=== PATIENT | male | born 1965 | race African-American/Black ===

== ENCOUNTER 2017-08-24 14:11 | Observation (INO) | payer BC, OTHER ==
--- NOTE | 2017-08-24 14:43 | PCM.HP ---
H&P History of Present Illness - General Date of Service: 08/24/17 Admit Problem/Dx: Admission Diagnosis/Problem Admission Diagnosis/Problem Appendicitis Source of Information: Patient History Limitations: Reports: No Limitations - History of Present Illness Initial Comments - Free Text/Narative: Patient is a 52 yo M who presents with abdominal pain for the past 24 hours. He developed generalized abdominal pain yesterday afternoon. As time went on it became constant, severe, and was located in the RLQ. It is made worse with movement and coughing. It is associated with nausea, but he hasnt vomited. He has a past medical history significant for smoking, COPD, and HTN. He presented to an OSH this am. His WBC was 9.8. His Hgb was 18.5. His BUN was WNL and Cr was 1. A CT of the abdomen pelvis showed a dilated appendix with an associated appendicolith. There was some micro pockets of free air to suggest perforation. He was transfered here with a diagnosis of appendicitis. His last meal was this morning around 7am and last drink was at 9am. - Related Data Allergies/Adverse Reactions: Allergies Allergy/AdvReac Type Severity Reaction Status Date / Time No Known Allergies Allergy Verified 08/24/17 14:35 Past Medical History Cardiovascular History: Reports: Hypertension Respiratory History: Reports: COPD, Other (See Below) Other Respiratory History: Cough Gastrointestinal History: Reports: None, Other (See Below) (Never had a colonoscopy) - Past Surgical History HEENT Surgical History: Reports: Eye Surgery Neurological Surgical History: Reports: Lumbar Spine, Spinal Fusion Social & Family History - Tobacco Use Smoking Status *Q: Current Every Day Smoker Years of Tobacco use: 35 Packs/Tins Daily: 1 Used Tobacco, but Quit: No Second Hand Smoke Exposure: No - Caffeine Use Caffeine Use: Reports: None - Alcohol Use Date of Last Drink: 08/23/17 Time of Last Drink: 09:30 - Recreational Drug Use Recreational Drug Use: No H&P Review of Systems - Review of Systems: Review Of Systems: See Below General: Reports: Decreased Appetite HEENT: Reports: No Symptoms Pulmonary: Reports: Wheezing, Cough Cardiovascular: Reports: No Symptoms Gastrointestinal: Reports: Abdominal Pain, Decreased Appetite, Nausea. Denies: Vomiting Genitourinary: Reports: No Symptoms Musculoskeletal: Reports: No Symptoms Skin: Reports: No Symptoms Exam - Exam Exam: See Below - Vital Signs Weight: 119.431 kg - Exam General: Alert, Oriented HEENT: Conjunctiva Clear, EOMI, Hearing Intact, Mucosa Moist & Hiram, Posterior Pharynx Clear, Pupils Equal, Pupils Reactive Lungs: Normal Respiratory Effort, Wheezing (on left side with experiation ) Cardiovascular: Regular Rate, Regular Rhythm GI/Abdominal Exam: Soft, Rebound (RLQ), Tender (RLQ). No: Guarding, Rigid Extremities: Normal Inspection *Q Meaningful Use (ADM) - VTE *Q VTE Criteria *Q: - Stroke *Q Stroke Criteria *Q: - AMI *Q AMI Criteria *Q: - Problem List (1) Appendicitis SNOMED Code(s): 37159062 ICD Code: K37 - UNSPECIFIED APPENDICITIS Status: Acute Current Visit: Yes Problem List Initiated/Reviewed/Updated: Yes Orders Last 24hrs: Active Orders 24 hr Category Date Time Status Patient Status [ADT] Routine ADT 08/24/17 14:35 Ordered Antiembolic Devices [RC] PER UNIT ROUTINE Care 08/24/17 14:37 Ordered RT Incentive Spirometry [RC] ASDIRECTED Care 08/24/17 14:35 Ordered Verify Patient Consent Obtain [RC] ASDIRECTED Care 08/24/17 14:35 Ordered Nothing Per Oral Diet [DIET] Diet 08/24/17 Breakfast Ordered BASIC METABOLIC PANEL,BMP [CHEM] AM Lab 08/25/17 05:11 Ordered CBC WITH AUTO DIFF [HEME] AM Lab 08/25/17 05:11 Ordered HYDROmorphone [Dilaudid] Med 08/24/17 14:37 Ordered 0.5 mg IVPUSH Q1H PRN Lactated Ringers @ 125 MLS/HR(1000ml) Med 08/24/17 14:45 Ordered Lactated Ringers [Ringers, Lactated] 1,000 ml IV ASDIRECTED Sequential Compression Device [OM.PC] Routine Oth 08/24/17 14:35 Ordered Resuscitation Status Routine Resus Stat 08/24/17 14:35 Ordered Medication Orders Lactated Ringer's (Ringers, Lactated) 1,000 mls @ 125 mls/hr IV ASDIRECTED DANNIELLE Assessment/Plan Comment:: Patient and I discussed the pathophysiology of appendicitis. I explained that if he is perforated that can increase the difficulty of the case, his length of stay and his risk of subsequent infection. We discussed the treatment which is surgery. I will attempt to remove this laparoscopically but if I cannot do so safely I will convert to open. We discussed the risks including bleeding, infection, or damage to surrounding structures including perforation. He verbalized understanding and wishes to proceed. The patient knows that he takes amlodipine and HCTZ for his BP. He is unsure what inhaler he uses. I asked his significant other to get his medications and to let the RNs know so we can start these post-operatively. He was given zosyn around 11am this morning so I will not give him another dose prior to surgery. He will stay NPO and be started on LR @ 125ml/hr. I will check his WBC and BMP in the am.
[2017-08-24] MEDS ORDERED: Bupivacaine 0.5% 30 ML SDV ONE (14:57)
[2017-08-24] MEDS: HYDROmorphone 1 MG/ML Syringe IVPUSH PRN ×3 (15:00→21:58)
[2017-08-24] MEDS: Lactated Ringers 1,000 ML IV SCH ×2 (15:01→19:02)
[2017-08-24] MEDS ORDERED: Propofol 200 MG/20 ML SDV ONE (15:12)
[2017-08-24] MEDS ORDERED: fentaNYL 250 MCG/5 ML SDV ONE (15:12)
[2017-08-24] MEDS ORDERED: Rocuronium 10 MG/ML 10 ML Syringe ONE (15:13)
[2017-08-24] MEDS ORDERED: diphenhydrAMINE 50 MG/ML SDV ONE (15:13)
[2017-08-24] MEDS ORDERED: Ondansetron 4 MG/2 ML SDV ONE (15:13)
[2017-08-24] MEDS ORDERED: Neostigmine Methylsulfate 1 MG/ML 5 ML Syringe ONE (15:13)
[2017-08-24] MEDS ORDERED: Succinylcholine/Normal Saline 200 MG/10 ML Syringe ONE (15:13)
[2017-08-24] MEDS ORDERED: Lidocaine 2% 5 ML SDV ONE (15:14)
[2017-08-24] MEDS ORDERED: Albuterol 6.7 GM Inhaler INH ONE (15:57)
--- NOTE | 2017-08-24 16:31 | PCM.PREANE ---
Preanesthetic Assessment - Procedure Proposed Procedure: appendectomy - Anesthesia/Transfusion/Family Hx Anesthesia History: Prior Anesthesia Without Reaction (back surgery) Family History of Anesthesia Reaction: No Transfusion History: No Prior Transfusion(s) - Review of Systems General: No Symptoms Pulmonary: Shortness of Breath, Wheezing, Pleuritic Chest Pain (hx of copd. wheezing on left diminished sounds throughout) Cardiovascular: Other (htn) Gastrointestinal: Abdominal Pain (acute appendicitis) Neurological: No Symptoms Other: Reports: None (states has passed out in past d/t copd, coughing, does not use cpap, does better with bi pap) - Physical Assessment NPO Status Date: 08/24/17 NPO Status Time: 07:00 O2 Sat by Pulse Oximetry: 93 Respiratory Rate: 19 Vital Signs: Last Vital Signs Temp 36.1 C 08/24/17 15:00 Pulse 84 08/24/17 15:00 Resp 19 08/24/17 15:10 BP 138/88 08/24/17 15:00 Pulse Ox 93 L 08/24/17 15:00 Height: 1.85 m Weight: 119.431 kg ASA Class: 3E Mental Status: Alert & Oriented x3 Dentition: Reports: Normal Dentition Thyro-Mental Finger Breadths: 4 Mouth Opening Finger Breadths: 4 ROM/Head Extension: Full Lungs: Clear to Auscultation, Normal Respiratory Effort Cardiovascular: Regular Rate, Regular Rhythm - Allergies Allergies/Adverse Reactions: Allergies Allergy/AdvReac Type Severity Reaction Status Date / Time No Known Allergies Allergy Verified 08/24/17 14:35 - Blood Blood Available: No Product(s) Available: None - Acknowledgements Anesthesia Type Planned: General Anesthesia Pt an Appropriate Candidate for the Planned Anesthesia: Yes Alternatives and Risks of Anesthesia Discussed w Pt/Guardian: Yes Pt/Guardian Understands and Agrees with Anesthesia Plan: Yes PreAnesthesia Questionnaire Cardiovascular History: Reports: Hypertension Respiratory History: Reports: COPD, Other (See Below) Other Respiratory History: Cough Gastrointestinal History: Reports: None, Other (See Below) (Never had a colonoscopy) - Past Surgical History HEENT Surgical History: Reports: Eye Surgery Neurological Surgical History: Reports: Lumbar Spine, Spinal Fusion - SUBSTANCE USE Smoking Status *Q: Current Every Day Smoker Tobacco Use Within Last Twelve Months: Cigarettes Second Hand Smoke Exposure: No Date of Last Drink: 08/23/17 Time of Last Drink: 09:30 Recreational Drug Use History: No - HOME MEDS Home Medications: Home Meds ALPRAZolam [Alprazolam] 1 mg PO ASDIRECTED PRN 08/24/17 [History] Albuterol Sulfate [Proair Hfa] INH ASDIRECTED PRN 08/24/17 [History] Albuterol/Ipratropium [DuoNeb 3.0-0.5 MG/3 ML] 2.5 ml INH ASDIRECTED PRN [History] Cyclobenzaprine [Flexeril] 10 mg PO ASDIRECTED PRN 08/24/17 [History] Hydrochlorothiazide 25 mg PO DAILY 08/24/17 [History] Ipratropium [Atrovent] 0.5 ml INH ASDIRECTED PRN 08/24/17 [History] Levalbuterol HCl [Xopenex] 1.25 mg INH ASDIRECTED PRN 08/24/17 [History] Meloxicam 15 mg PO DAILY 08/24/17 [History] Montelukast [Singulair] 10 mg PO DAILY 08/24/17 [History] amLODIPine [Norvasc] 10 mg PO DAILY 08/24/17 [History] - CURRENT (IN HOUSE) MEDS Current Meds: Current Medications Fentanyl (Sublimaze) 50 mcg IVPUSH Q5M PRN PRN Reason: Pain (severe 7-10) Stop: 08/24/17 19:00 Hydromorphone HCl (Dilaudid) 0.5 mg IVPUSH Q1H PRN PRN Reason: Pain Last Admin: 08/24/17 15:00 Dose: 0.5 mg Lactated Ringer's (Ringers, Lactated) 1,000 mls @ 125 mls/hr IV ASDIRECTED DANNIELLE Last Admin: 08/24/17 15:01 Dose: 125 mls/hr Discontinued Medications Albuterol (Proventil Hfa) Confirm Administered Dose 6.7 gm INH .STK-MED ONE Stop: 08/24/17 15:58 Bupivacaine HCl (Marcaine 0.5%) Confirm Administered Dose 30 ml .ROUTE .STK-MED ONE Stop: 08/24/17 14:58 Diphenhydramine HCl (Benadryl) Confirm Administered Dose 50 mg .ROUTE .STK-MED ONE Stop: 08/24/17 15:14 Fentanyl (Sublimaze) Confirm Administered Dose 250 mcg .ROUTE .STK-MED ONE Stop: 08/24/17 15:13 Glycopyrrolate () Confirm Administered Dose 1 mg .ROUTE .STK-MED ONE Stop: 08/24/17 15:14 Lidocaine (Xylocaine-Mpf 2%) Confirm Administered Dose 5 ml .ROUTE .STK-MED ONE Stop: 08/24/17 15:15 Neostigmine Methylsulfate (Neostigmine) Confirm Administered Dose 5 mg .ROUTE .STK-MED ONE Stop: 08/24/17 15:14 Ondansetron HCl (Zofran) Confirm Administered Dose 4 mg .ROUTE .STK-MED ONE Stop: 08/24/17 15:14 Propofol (Diprivan 20 Ml) Confirm Administered Dose 200 mg .ROUTE .STK-MED ONE Stop: 08/24/17 15:13 Rocuronium [place] (Zemuron) Confirm Administered Dose 100 mg .ROUTE .STK-MED ONE Stop: 08/24/17 15:14 Succinylcholine Chloride (Succinylcholine In Ns Pf) Confirm Administered Dose 200 mg .ROUTE .STK-MED ONE Stop: 08/24/17 15:14
[2017-08-24] MEDS ORDERED: ePHEDrine 50 MG/ML SDV ONE (17:32)
--- NOTE | 2017-08-24 17:58 | PCM.OPNOTE ---
- General Post-Op/Procedure Note Date of Surgery/Procedure: 08/24/17 Operative Procedure(s): Laparoscopic appendectomy Findings: Enlarged inflamed appendix suspicious for perforation. No purulent material in abdomen. Pre Op Diagnosis: Appendicitis Post-Op Diagnosis: same Anesthesia Technique: General ET Tube Primary Surgeon: Cee Albert EBL in mLs: 10 Condition: Good Free Text/Narrative:: Intake & Output 08/24/17 08/24/17 08/24/17 06:59 14:59 22:59 Intake Total 0 Output Total 0 Balance 0
[2017-08-24] MEDS: fentaNYL 100 MCG/2 ML SDV IVPUSH PRN ×4 (18:03→18:24)
--- NOTE | 2017-08-24 18:51 | PCM.POSTAN ---
POST ANESTHESIA ASSESSMENT - MENTAL STATUS Mental Status: Alert - RESPIRATORY Respiratory Status: Respiratory Rate WNL - CARDIOVASCULAR CV Status: Pulse Rate WNL - GASTROINTESTINAL GI Status: No Symptoms - POST OP HYDRATION Hydration Status: Adequate & Stable (discharged to floor)
[2017-08-24] MEDS: Piperacillin/Tazobactam 3.375 GM in Sodium Chloride 0.9% 50 ML IV SCH (18:56)
[2017-08-24] MEDS: Acetaminophen/oxyCODONE 325-5 MG Tab PO PRN (20:11)
[2017-08-24] MEDS: Montelukast 10 MG Tab PO SCH (20:13)
[2017-08-24] MEDS ORDERED: Sodium Chloride 0.9% 500 ML IV SCH (20:15)
--- NOTE | 2017-08-24 20:50 | OR ---
SURGEON: STEPHANY HOLDER MD DATE OF PROCEDURE: 08/24/2017 PREOPERATIVE DIAGNOSIS: Appendicitis. POSTOPERATIVE DIAGNOSIS: Appendicitis. PROCEDURE PERFORMED: Laparoscopic appendectomy. ANESTHESIA: General endotracheal anesthesia. FLUIDS: 1450 mL crystalloid. URINE OUTPUT: 30 mL. ESTIMATED BLOOD LOSS: 10 mL. FINDINGS: Acutely inflamed, thickened and enlarged appendix with thick edema of the appendiceal mesentery. Concern for perforation. No evidence of abscess. COMPLICATIONS: None. INDICATIONS: The patient is a 52-year-old male, who presents with a one-day history of right lower quadrant pain. CT of the abdomen and pelvis showed a grossly enlarged appendix and associated appendicolith consistent with appendicitis. There was a small amount of free air around the appendix concerning for perforation. The patient was transferred here for further cares. We discussed the pathophysiology of appendicitis. We discussed the treatment which is removal of the appendix. I discussed the laparoscopic and open approach. Should I be unable to perform this safely laparoscopically, we would convert to open. We discussed the risks, including bleeding, infection, or damage to surrounding structures, including perforation. The patient verbalized understanding and wishes to proceed. PROCEDURE IN DETAIL: The patient was brought into the OR and placed on the OR table in supine position. A time-out was completed verifying the patient's name, age, date of , allergies, and procedure to be performed. General endotracheal anesthesia was induced. The left arm was tucked to the patient's side and a Larson catheter was placed. The abdomen was prepped and draped in the usual standard fashion. An area of 4 fingerbreadths below the left subcostal margin and above the umbilicus along the mid clavicular line was anesthetized with 0.5% Marcaine plain. A 1 cm incision was made using an 11 blade. A 5 mm optical trocar was used to gain access into the abdomen. All layers of the abdominal wall were noted upon entry. The abdomen was insufflated and a 5 mm 30 degree scope was inserted in the abdomen. I was able to visualize the area underneath my initial trocar site and no damage was noted. A 5 mm trocar was placed just lateral to the umbilicus and a 12 mm trocar was placed in the left lower quadrant both under direct visualization. The patient was then placed into Trendelenburg position and air-planed slightly to the left. I immediately noted an inflamed and enlarged appendix in the right lower quadrant that was adhered to the surrounding bowel. The distal tip of this was grasped with an atraumatic grasper and lifted away from the surrounding structures. The appendix was then followed down to its base on the cecum, which was found to be retrocecal. In order to be able to free up the appendix appropriately, the peritoneal attachments of the cecum were taken down with hook cautery and a [place] dissector. The distal tip of the appendix was grasped and the appendiceal mesentery was taken down using a Harmonic Scalpel from distal to proximal. The appendiceal mesentery was thickened and very inflamed. Once the base of the appendix had been noted and the cecum cleared away to verify my anatomy, a 45 mm blue load was used to staple across the base of the appendix with an endoscopic stapling device. The appendix was then placed in an EndoCatch bag and removed through the 12 mm port site. The abdomen was irrigated with 1 L of normal saline. I inspected the area around my operative site and it was found to be hemostatic. The 12 mm port site was closed with 0 Vicryl using a Mane- Venkat device. The trocars were removed under direct visualization. The abdomen was allowed to desufflate. The 12 mm port site was closed with interrupted 3-0 Vicryl in the subcutaneous fat and a running 4-0 Monocryl suture in the subcutaneous tissues. The 5 mm trocar sites were closed with interrupted 4-0 Monocryl. Steri-Strips and sterile dressings were applied. The patient was transferred to the PACU in stable condition. YOLANDA NORMAN /[id number] FRED
--- NOTE | 2017-08-24 22:14 | PCM.SURGPN ---
- General Info Date of Service: 08/24/17 Functional Status: Reports: Pain Controlled, Other (Patient has a post operative fever of 100-101F. He was given percocet 2 hours ago. He denies abdominal pain other than incisional pain in the LLQ. No nausea or vomiting. ) - Review of Systems General: Reports: Fever Pulmonary: Reports: No Symptoms Cardiovascular: Reports: No Symptoms Gastrointestinal: Reports: No Symptoms - Patient Data Vitals - Most Recent: Last Vital Signs Temp 36.6 C 08/24/17 19:15 Pulse 88 08/24/17 19:15 Resp 20 08/24/17 19:15 BP 145/85 H 08/24/17 19:15 Pulse Ox 94 L 08/24/17 19:15 Weight - Most Recent: 119.431 kg I&O - Last 24 Hours: Intake & Output 08/24/17 08/24/17 08/24/17 06:59 14:59 22:59 Intake Total 2100 Output Total 30 Balance 2069 Med Orders - Current: Current Medications Albuterol/Ipratropium (Duoneb 3.0-0.5 Mg/3 Ml) 3 ml NEB Q6HRRT PRN PRN Reason: Shortness of Breath Amlodipine Besylate (Norvasc) 5 mg PO DAILY DANNIELLE Hydrochlorothiazide (Hydrochlorothiazide) 25 mg PO DAILY DANNIELLE Hydromorphone HCl (Dilaudid) 0.5 mg IVPUSH Q1H PRN PRN Reason: Pain Last Admin: 08/24/17 21:58 Dose: 0.5 mg Lactated Ringer's (Ringers, Lactated) 1,000 mls @ 125 mls/hr IV ASDIRECTED DANNIELLE Last Admin: 08/24/17 19:02 Dose: 125 mls/hr Piperacillin Sod/Tazobactam (Sod 3.375 gm/ Sodium Chloride) 50 mls @ 100 mls/ hr IV Q8H DANNIELLE Last Admin: 08/24/17 18:56 Dose: 100 mls/hr Sodium Chloride (Normal Saline) 500 mls @ 999 mls/hr IV .BOLUS DANNIELLE Last Admin: 08/24/17 21:06 Dose: 999 mls/hr Montelukast Sodium (Singulair) 10 mg PO BEDTIME DANNIELLE Last Admin: 08/24/17 20:13 Dose: 10 mg Oxycodone/Acetaminophen (Percocet 325-5 Mg) 2 tab PO Q4H PRN PRN Reason: Abdominal Pain Last Admin: 08/24/17 20:11 Dose: 2 tab Discontinued Medications Albuterol (Proventil Hfa) Confirm Administered Dose 6.7 gm INH .STK-MED ONE Stop: 08/24/17 15:58 Bupivacaine HCl (Marcaine 0.5%) Confirm Administered Dose 30 ml .ROUTE .STK-MED ONE Stop: 08/24/17 14:58 Diphenhydramine HCl (Benadryl) Confirm Administered Dose 50 mg .ROUTE .STK-MED ONE Stop: 08/24/17 15:14 Ephedrine Sulfate (Ephedrine Sulfate) Confirm Administered Dose 50 mg .ROUTE .STK-MED ONE Stop: 08/24/17 17:33 Fentanyl (Sublimaze) Confirm Administered Dose 250 mcg .ROUTE .STK-MED ONE Stop: 08/24/17 15:13 Fentanyl (Sublimaze) 50 mcg IVPUSH Q5M PRN PRN Reason: Pain (severe 7-10) Stop: 08/24/17 19:00 Last Admin: 08/24/17 18:24 Dose: 50 mcg Glycopyrrolate () Confirm Administered Dose 1 mg .ROUTE .STK-MED ONE Stop: 08/24/17 15:14 Lidocaine (Xylocaine-Mpf 2%) Confirm Administered Dose 5 ml .ROUTE .STK-MED ONE Stop: 08/24/17 15:15 Neostigmine Methylsulfate (Neostigmine) Confirm Administered Dose 5 mg .ROUTE .STK-MED ONE Stop: 08/24/17 15:14 Ondansetron HCl (Zofran) Confirm Administered Dose 4 mg .ROUTE .STK-MED ONE Stop: 08/24/17 15:14 Propofol (Diprivan 20 Ml) Confirm Administered Dose 200 mg .ROUTE .STK-MED ONE Stop: 08/24/17 15:13 Rocuronium [place] (Zemuron) Confirm Administered Dose 100 mg .ROUTE .STK-MED ONE Stop: 08/24/17 15:14 Succinylcholine Chloride (Succinylcholine In Ns Pf) Confirm Administered Dose 200 mg .ROUTE .STK-MED ONE Stop: 08/24/17 15:14 - Exam Wound/Incisions: Dressing Dry and Intact, No Drainage General: Alert, Oriented Lungs: Normal Respiratory Effort Cardiovascular: Regular Rhythm GI/Abdominal Exam: Soft, Non-Tender, No Distention, Tender (at the LLQ incision site ). No: Guarding, Rigid, Rebound - Problem List & Annotations (1) Appendicitis SNOMED Code(s): 53322974 Code(s): K37 - UNSPECIFIED APPENDICITIS Status: Acute Current Visit: Yes - Problem List Review Problem List Initiated/Reviewed/Updated: Yes - My Orders Last 24 Hours: Active Orders 24 hr Category Date Time Status Patient Status [ADT] Routine ADT 08/24/17 14:35 Active Antiembolic Devices [RC] PER UNIT ROUTINE Care 08/24/17 14:37 Active Bradycardia-Neuroaxis [employer] [RC] ROUTINE Care 08/24/17 15:17 Active Hypertension-Neuroaxis [employer] [RC] ROUTINE Care 08/24/17 15:17 Active Hypotension-Neuroaxis [employer] [RC] ROUTINE Care 08/24/17 15:17 Active Oxygen Therapy [RC] ASDIRECTED Care 08/24/17 15:17 Active RT Aerosol Therapy [RC] ASDIRECTED Care 08/24/17 17:52 Active RT Incentive Spirometry [RC] ASDIRECTED Care 08/24/17 14:35 Active Verify Patient Consent Obtain [RC] ASDIRECTED Care 08/24/17 14:35 Active Vital Signs [RC] PER UNIT ROUTINE Care 08/24/17 15:17 Active Clear Liquid Diet [DIET] Diet 08/24/17 Dinner Active BASIC METABOLIC PANEL,BMP [CHEM] AM Lab 08/25/17 05:11 Ordered CBC WITH AUTO DIFF [HEME] AM Lab 08/25/17 05:11 Ordered Acetaminophen/oxyCODONE [Percocet 325-5 MG] Med 08/24/17 17:52 Active 2 tab PO Q4H PRN Albuterol/Ipratropium [DuoNeb 3.0-0.5 MG/3 ML] Med 08/24/17 17:52 Active 3 ml NEB Q6HRRT PRN HYDROmorphone [Dilaudid] Med 08/24/17 14:37 Active 0.5 mg IVPUSH Q1H PRN Hydrochlorothiazide Med 08/25/17 09:00 Active 25 mg PO DAILY Lactated Ringers [Ringers, Lactated] 1,000 ml Med 08/24/17 14:45 Active IV ASDIRECTED Montelukast [Singulair] Med 08/24/17 21:00 Active 10 mg PO BEDTIME Piperacillin/Tazobactam [Piperacil-Tazobact] 3.375 gm Med 08/24/17 18:00 Active Sodium Chloride 0.9% [Normal Saline] 50 ml IV Q8H Sodium Chloride 0.9% [Normal Saline] 500 ml Med 08/24/17 20:15 Active IV .BOLUS amLODIPine [Norvasc] Med 08/25/17 09:00 Active 5 mg PO DAILY Sequential Compression Device [OM.PC] Routine Oth 08/24/17 14:35 Ordered Resuscitation Status Routine Resus Stat 08/24/17 14:35 Ordered Medication Orders Albuterol/Ipratropium (Duoneb 3.0-0.5 Mg/3 Ml) 3 ml NEB Q6HRRT PRN PRN Reason: Shortness of Breath Amlodipine Besylate (Norvasc) 5 mg PO DAILY DANNIELLE Hydrochlorothiazide (Hydrochlorothiazide) 25 mg PO DAILY DANNIELLE Hydromorphone HCl (Dilaudid) 0.5 mg IVPUSH Q1H PRN PRN Reason: Pain Last Admin: 08/24/17 21:58 Dose: 0.5 mg Admin: 08/24/17 18:56 Dose: 0.5 mg Admin: 08/24/17 15:00 Dose: 0.5 mg Lactated Ringer's (Ringers, Lactated) 1,000 mls @ 125 mls/hr IV ASDIRECTED DANNIELLE Last Admin: 08/24/17 19:02 Dose: 125 mls/hr Infusion: 08/24/17 19:02 Dose: 125 mls/hr Admin: 08/24/17 15:01 Dose: 125 mls/hr Piperacillin Sod/Tazobactam (Sod 3.375 gm/ Sodium Chloride) 50 mls @ 100 mls/ hr IV Q8H DANNIELLE Last Admin: 08/24/17 18:56 Dose: 100 mls/hr Sodium Chloride (Normal Saline) 500 mls @ 999 mls/hr IV .BOLUS DANNIELLE Last Admin: 08/24/17 21:06 Dose: 999 mls/hr Montelukast Sodium (Singulair) 10 mg PO BEDTIME DANNIELLE Last Admin: 08/24/17 20:13 Dose: 10 mg Oxycodone/Acetaminophen (Percocet 325-5 Mg) 2 tab PO Q4H PRN PRN Reason: Abdominal Pain Last Admin: 08/24/17 20:11 Dose: 2 tab - Plan Plan (Free Text/Narrative):: -Fever: Given his perforated appendicitis I am not surprised by his postoperative fever. Continue IVF, scheduled percocet, and IV zosyn. CBC in am which I expect to be elevated. -Pain: IV dilaudid and percocet -Diet: liquid -Renal: UOP was low during case. Has not urinated since surgery. Bladder scan shows 445ml in bladder. Will continue to monitor and given IVF. Check BMP in am.
[2017-08-24] MEDS ORDERED: hydrALAZINE 20 MG/ML SDV IVPUSH PRN (22:29)
[2017-08-24] MEDS: Nicotine 14 MG/24 Hr Patch TRDERM SCH (23:24)
[2017-08-25] MEDS: Albuterol/Ipratropium 3.0-0.5 MG/3 ML Neb Soln NEB PRN ×2 (00:20→07:49)
[2017-08-25] MEDS: Acetaminophen/oxyCODONE 325-5 MG Tab PO PRN ×5 (01:26→20:43)
[2017-08-25] MEDS: Piperacillin/Tazobactam 3.375 GM in Sodium Chloride 0.9% 50 ML IV SCH ×3 (01:27→17:46)
[2017-08-25] MEDS: Lactated Ringers 1,000 ML IV SCH (03:35)
[2017-08-25] MEDS: HYDROmorphone 1 MG/ML Syringe IVPUSH PRN ×5 (05:12→17:45)
[2017-08-25 06:24] LABS: CHLORIDE,CL 103 mmol/L (98-110); SODIUM,NA 137 mmol/L (136-146)
[2017-08-25] MEDS: Nicotine 14 MG/24 Hr Patch TRDERM SCH (08:00)
[2017-08-25] MEDS: amLODIPine 5 MG Tab PO SCH (08:01)
[2017-08-25] MEDS: Hydrochlorothiazide 25 MG Tab PO SCH (08:01)
[2017-08-25] MEDS ORDERED: Calcium Carbonate 500 MG Tab.Chew PO PRN (09:48)
[2017-08-25] MEDS: Cyclobenzaprine 10 MG Tab PO PRN ×2 (09:58→20:40)
[2017-08-25] MEDS: Meloxicam 7.5 MG Tab PO SCH (09:58)
--- NOTE | 2017-08-25 10:09 | PCM.SURGPN ---
- General Info Date of Service: 08/25/17 Date of Surgery/Procedure: 08/24/17 POD#: 1 Post-Op Diagnosis: Acute appendicitis Functional Status: Reports: Other (Patient c/o pain along the LLQ incision. He had a fever last evening. He was given percocet and it improved. Vitals otherwise stable. Re-started home BP meds. He is wheezy this morning but recieved his neb. He is having heartburn. Tolerating clear liquid diet. UOP good overnight. This morning his WBC is 15K. Still getting IV zosyn. ) - Review of Systems General: Reports: Fever Pulmonary: Reports: Wheezing Cardiovascular: Reports: No Symptoms Gastrointestinal: Reports: Abdominal Pain (at llq incision site ) Genitourinary: Reports: No Symptoms Musculoskeletal: Reports: Shoulder Pain (chronic ), Back Pain (chronic ) - Patient Data Vitals - Most Recent: Last Vital Signs Temp 36.3 C 08/25/17 08:00 Pulse 100 08/25/17 08:00 Resp 22 H 08/25/17 08:00 BP 141/81 H 08/25/17 08:01 Pulse Ox 94 L 08/25/17 08:00 Weight - Most Recent: 119.431 kg I&O - Last 24 Hours: Intake & Output 08/24/17 08/25/17 08/25/17 22:59 06:59 14:59 Intake Total 2150 2450 Output Total 30 300 Balance 2120 2150 Lab Results Last 24 Hrs: Laboratory Results - last 24 hr 08/25/17 08/25/17 Range/Units 05:50 05:50 WBC 15.60 H (4.0-11.0) K/uL RBC 5.45 (4.50-5.90) M/uL Hgb 16.9 (13.0-17.0) g/dL Hct 50.2 H (38.0-50.0) % MCV 92.1 (80.0-98.0) fL MCH 31.0 (27.0-32.0) pg MCHC 33.7 (31.0-37.0) g/dL RDW Std Deviation 49.1 (28.0-62.0) fl RDW Coeff of Valeria 15 (11.0-15.0) % Plt Count 223 (150-400) K/uL MPV 10.70 (7.40-12.00) fL Neut % (Auto) 86.2 H (48.0-80.0) % Lymph % (Auto) 8.3 L (16.0-40.0) % [place] % (Auto) 5.0 (0.0-15.0) % Eos % (Auto) 0.4 (0.0-7.0) % Baso % (Auto) 0.1 (0.0-1.5) % Neut # (Auto) 13.5 H (1.4-5.7) K/uL Lymph # (Auto) 1.3 (0.6-2.4) K/uL [place] # (Auto) 0.8 (0.0-0.8) K/uL Eos # (Auto) 0.1 (0.0-0.7) K/uL Baso # (Auto) 0.0 (0.0-0.1) K/uL Nucleated RBC % 0.0 /100WBC Nucleated RBCs # 0 K/uL Sodium 137 (136-146) mmol/L Potassium 3.6 (3.5-5.1) mmol/L Chloride 103 (98-110) mmol/L Carbon Dioxide 25 (21-31) mmol/L BUN 6 (6.0-23.0) mg/dL Creatinine 0.9 (0.6-1.5) mg/dL Est Cr Clr Drug Dosing 110.97 mL/min Estimated GFR (MDRD) > 60.0 ml/min Glucose 126 H (60-110) mg/dL Calcium 8.4 L (8.8-10.8) mg/dL Med Orders - Current: Current Medications Albuterol/Ipratropium (Duoneb 3.0-0.5 Mg/3 Ml) 3 ml NEB Q6HRRT PRN PRN Reason: Shortness of Breath Last Admin: 08/25/17 07:49 Dose: 3 ml Amlodipine Besylate (Norvasc) 5 mg PO DAILY [facility] Last Admin: 08/25/17 08:01 Dose: 5 mg Calcium Carbonate/Glycine (Tums) 500 mg PO Q2HR PRN PRN Reason: Indigestion Cyclobenzaprine HCl (Flexeril) 10 mg PO TID PRN PRN Reason: Abdominal Pain Last Admin: 08/25/17 09:58 Dose: 10 mg Hydralazine HCl (Apresoline) 10 mg IVPUSH Q1H PRN PRN Reason: Hypertension Hydrochlorothiazide (Hydrochlorothiazide) 25 mg PO DAILY [facility] Last Admin: 08/25/17 08:01 Dose: 25 mg Hydromorphone HCl (Dilaudid) 0.5 mg IVPUSH Q1H PRN PRN Reason: Pain Last Admin: 08/25/17 08:50 Dose: 0.5 mg Piperacillin Sod/Tazobactam (Sod 3.375 gm/ Sodium Chloride) 50 mls @ 100 mls/ hr IV Q8H [facility] Last Admin: 08/25/17 09:59 Dose: 100 mls/hr Sodium Chloride (Normal Saline) 500 mls @ 999 mls/hr IV .BOLUS [facility] Last Admin: 08/24/17 21:06 Dose: 999 mls/hr Meloxicam (Mobic) 7.5 mg PO DAILY [facility] Last Admin: 08/25/17 09:58 Dose: 7.5 mg Montelukast Sodium (Singulair) 10 mg PO BEDTIME [facility] Last Admin: 08/24/17 20:13 Dose: 10 mg Nicotine (Habitrol) 14 mg TRDERM DAILY [facility] Last Admin: 08/25/17 08:00 Dose: 14 mg Oxycodone/Acetaminophen (Percocet 325-5 Mg) 2 tab PO Q4H PRN PRN Reason: Abdominal Pain Last Admin: 08/25/17 06:48 Dose: 2 tab Discontinued Medications Albuterol (Proventil Hfa) Confirm Administered Dose 6.7 gm INH .STK-MED ONE Stop: 08/24/17 15:58 Bupivacaine HCl (Marcaine 0.5%) Confirm Administered Dose 30 ml .ROUTE .STK-MED ONE Stop: 08/24/17 14:58 Diphenhydramine HCl (Benadryl) Confirm Administered Dose 50 mg .ROUTE .STK-MED ONE Stop: 08/24/17 15:14 Ephedrine Sulfate (Ephedrine Sulfate) Confirm Administered Dose 50 mg .ROUTE .STK-MED ONE Stop: 08/24/17 17:33 Fentanyl (Sublimaze) Confirm Administered Dose 250 mcg .ROUTE .STK-MED ONE Stop: 08/24/17 15:13 Fentanyl (Sublimaze) 50 mcg IVPUSH Q5M PRN PRN Reason: Pain (severe 7-10) Stop: 08/24/17 19:00 Last Admin: 08/24/17 18:24 Dose: 50 mcg Glycopyrrolate () Confirm Administered Dose 1 mg .ROUTE .STK-MED ONE Stop: 08/24/17 15:14 Lactated Ringer's (Ringers, Lactated) 1,000 mls @ 125 mls/hr IV ASDIRECTED [facility] Last Admin: 08/25/17 03:35 Dose: 125 mls/hr Lidocaine (Xylocaine-Mpf 2%) Confirm Administered Dose 5 ml .ROUTE .STK-MED ONE Stop: 08/24/17 15:15 Neostigmine Methylsulfate (Neostigmine) Confirm Administered Dose 5 mg .ROUTE .STK-MED ONE Stop: 08/24/17 15:14 Ondansetron HCl (Zofran) Confirm Administered Dose 4 mg .ROUTE .STK-MED ONE Stop: 08/24/17 15:14 Propofol (Diprivan 20 Ml) Confirm Administered Dose 200 mg .ROUTE .STK-MED ONE Stop: 08/24/17 15:13 Rocuronium [place] (Zemuron) Confirm Administered Dose 100 mg .ROUTE .STK-MED ONE Stop: 08/24/17 15:14 Succinylcholine Chloride (Succinylcholine In Ns Pf) Confirm Administered Dose 200 mg .ROUTE .STK-MED ONE Stop: 08/24/17 15:14 - Exam Wound/Incisions: Dressing Dry and Intact, No Drainage Quality Assessment: Supplemental Oxygen General: Alert, Oriented HEENT: Pupils Equal Neck: Supple, Trachea Midline Lungs: Normal Respiratory Effort, Wheezing Cardiovascular: Regular Rate, Regular Rhythm GI/Abdominal Exam: Soft, Non-Tender, No Distention. No: Rebound, Tender Extremities: Normal Inspection Skin: Warm, Dry, Intact - Problem List & Annotations (1) Appendicitis SNOMED Code(s): 60427197 Code(s): K37 - UNSPECIFIED APPENDICITIS Status: Acute Current Visit: Yes - Problem List Review Problem List Initiated/Reviewed/Updated: Yes - My Orders Last 24 Hours: Active Orders 24 hr Category Date Time Status Patient Status [ADT] Routine ADT 08/24/17 14:35 Active Antiembolic Devices [RC] PER UNIT ROUTINE Care 08/24/17 14:37 Active Bradycardia-Neuroaxis [employer] [RC] ROUTINE Care 08/24/17 15:17 Active Hypertension-Neuroaxis [employer] [RC] ROUTINE Care 08/24/17 15:17 Active Hypotension-Neuroaxis [employer] [RC] ROUTINE Care 08/24/17 15:17 Active Oxygen Therapy [RC] ASDIRECTED Care 08/24/17 15:17 Active RT Aerosol Therapy [RC] ASDIRECTED Care 08/24/17 17:52 Active RT Incentive Spirometry [RC] ASDIRECTED Care 08/24/17 14:35 Active Verify Patient Consent Obtain [RC] ASDIRECTED Care 08/24/17 14:35 Active Vital Signs [RC] PER UNIT ROUTINE Care 08/24/17 15:17 Active Clear Liquid Diet [DIET] Diet 08/24/17 Dinner Active Regular Diet [DIET] Diet 08/25/17 Lunch Active Acetaminophen/oxyCODONE [Percocet 325-5 MG] Med 08/24/17 17:52 Active 2 tab PO Q4H PRN Albuterol/Ipratropium [DuoNeb 3.0-0.5 MG/3 ML] Med 08/24/17 17:52 Active 3 ml NEB Q6HRRT PRN Calcium Carbonate [Tums] Med 08/25/17 09:48 Active 500 mg PO Q2HR PRN Cyclobenzaprine [Flexeril] Med 08/25/17 09:43 Active 10 mg PO TID PRN HYDROmorphone [Dilaudid] Med 08/24/17 14:37 Active 0.5 mg IVPUSH Q1H PRN Hydrochlorothiazide Med 08/25/17 09:00 Active 25 mg PO DAILY Meloxicam [Mobic] Med 08/25/17 09:45 Active 7.5 mg PO DAILY Montelukast [Singulair] Med 08/24/17 21:00 Active 10 mg PO BEDTIME Nicotine [Habitrol] Med 08/24/17 22:30 Active 14 mg TRDERM DAILY Piperacillin/Tazobactam [Piperacil-Tazobact] 3.375 gm Med 08/24/17 18:00 Active Sodium Chloride 0.9% [Normal Saline] 50 ml IV Q8H Sodium Chloride 0.9% [Normal Saline] 500 ml Med 08/24/17 20:15 Active IV .BOLUS amLODIPine [Norvasc] Med 08/25/17 09:00 Active 5 mg PO DAILY hydrALAZINE [Apresoline] Med 08/24/17 22:29 Active 10 mg IVPUSH Q1H PRN Sequential Compression Device [OM.PC] Routine Oth 08/24/17 14:35 Ordered Resuscitation Status Routine Resus Stat 08/24/17 14:35 Ordered Medication Orders Albuterol/Ipratropium (Duoneb 3.0-0.5 Mg/3 Ml) 3 ml NEB Q6HRRT PRN PRN Reason: Shortness of Breath Last Admin: 08/25/17 07:49 Dose: 3 ml Admin: 08/25/17 00:20 Dose: 3 ml Amlodipine Besylate (Norvasc) 5 mg PO DAILY [facility] Last Admin: 08/25/17 08:01 Dose: 5 mg Calcium Carbonate/Glycine (Tums) 500 mg PO Q2HR PRN PRN Reason: Indigestion Cyclobenzaprine HCl (Flexeril) 10 mg PO TID PRN PRN Reason: Abdominal Pain Last Admin: 08/25/17 09:58 Dose: 10 mg Hydralazine HCl (Apresoline) 10 mg IVPUSH Q1H PRN PRN Reason: Hypertension Hydrochlorothiazide (Hydrochlorothiazide) 25 mg PO DAILY [facility] Last Admin: 08/25/17 08:01 Dose: 25 mg Hydromorphone HCl (Dilaudid) 0.5 mg IVPUSH Q1H PRN PRN Reason: Pain Last Admin: 08/25/17 08:50 Dose: 0.5 mg Admin: 08/25/17 06:52 Dose: 0.5 mg Admin: 08/25/17 05:12 Dose: 0.5 mg Admin: 08/24/17 21:58 Dose: 0.5 mg Admin: 08/24/17 18:56 Dose: 0.5 mg Admin: 08/24/17 15:00 Dose: 0.5 mg Piperacillin Sod/Tazobactam (Sod 3.375 gm/ Sodium Chloride) 50 mls @ 100 mls/ hr IV Q8H [facility] Last Admin: 08/25/17 09:59 Dose: 100 mls/hr Infusion: 08/25/17 01:57 Dose: 100 mls/hr Admin: 08/25/17 01:27 Dose: 100 mls/hr Infusion: 08/24/17 19:26 Dose: 100 mls/hr Admin: 08/24/17 18:56 Dose: 100 mls/hr Sodium Chloride (Normal Saline) 500 mls @ 999 mls/hr IV .BOLUS [facility] Last Admin: 08/24/17 21:06 Dose: 999 mls/hr Meloxicam (Mobic) 7.5 mg PO DAILY [facility] Last Admin: 08/25/17 09:58 Dose: 7.5 mg Montelukast Sodium (Singulair) 10 mg PO BEDTIME [facility] Last Admin: 08/24/17 20:13 Dose: 10 mg Nicotine (Habitrol) 14 mg TRDERM DAILY [facility] Last Admin: 08/25/17 08:00 Dose: 14 mg Admin: 08/24/17 23:24 Dose: 14 mg Oxycodone/Acetaminophen (Percocet 325-5 Mg) 2 tab PO Q4H PRN PRN Reason: Abdominal Pain Last Admin: 08/25/17 06:48 Dose: 2 tab Admin: 08/25/17 01:26 Dose: 2 tab Admin: 08/24/17 20:11 Dose: 2 tab - Plan Plan (Free Text/Narrative):: -Pain: Will write for at home meloxicam for shoulder and back pain that is chronic. Continue po percocet. Flexeril 10mg TID prn abdominal pain. -CV: Continue home BP meds. PRN hydralazine for SBP >180 -Pulmonary: Will schedule nebs given his wheezing. Encourage IS use. -GI: Ok to have regular diet. Will see if heartburn improves with this. PRN tums -Renal: UOP good overnight. Will stop IVF. BUN, Cr improved. -ID: WBC elevated as I expected after surgery for a perforated appendix. Will continue IV zosyn until WBC within normal limits. -Px: Heparin, SCDs
--- NOTE | 2017-08-25 12:21 | PCM48HPAN ---
Post Anesthesia Note - EVALUATION WITHIN 48HRS OF ANESTHETIC Vital Signs in Normal Range: Yes Patient Participated in Evaluation: Yes Respiratory Function Stable: Yes Airway Patent: Yes Cardiovascular Function Stable: Yes Hydration Status Stable: Yes Pain Control Satisfactory: Yes (states pain is not under control. taking dilaudid and percocet) Nausea and Vomiting Control Satisfactory: Yes Mental Status Recovered: Yes
[2017-08-25] MEDS: Albuterol/Ipratropium 3.0-0.5 MG/3 ML Neb Soln NEB SCH ×2 (13:41→13:42)
[2017-08-25] MEDS ORDERED: Albuterol/Ipratropium 3.0-0.5 MG/3 ML Neb Soln ONE (20:28)
[2017-08-25] MEDS: Montelukast 10 MG Tab PO SCH (20:40)
[2017-08-26] MEDS ORDERED: Albuterol/Ipratropium 3.0-0.5 MG/3 ML Neb Soln NEB SCH ×4 (00:17→20:11)
[2017-08-26] MEDS: HYDROmorphone 1 MG/ML Syringe IVPUSH PRN ×2 (00:53→06:58)
[2017-08-26] MEDS: Piperacillin/Tazobactam 3.375 GM in Sodium Chloride 0.9% 50 ML IV SCH ×3 (01:04→18:30)
[2017-08-26] MEDS ORDERED: Benzocaine/Cetylpyridinium/Menthol Lozenge MUCMEM PRN ×2 (01:39→01:50)
[2017-08-26] MEDS: Acetaminophen/oxyCODONE 325-5 MG Tab PO PRN ×5 (02:52→22:04)
[2017-08-26] MEDS ORDERED: Lactated Ringers 1,000 ML IV ONE ×2 (08:22→16:24)
[2017-08-26] MEDS: amLODIPine 5 MG Tab PO SCH (08:55)
[2017-08-26] MEDS: Meloxicam 7.5 MG Tab PO SCH (08:55)
[2017-08-26] MEDS: Hydrochlorothiazide 25 MG Tab PO SCH (08:55)
[2017-08-26] MEDS: Enoxaparin 40 MG/0.4 ML Syringe SUBCUT SCH (08:55)
[2017-08-26] MEDS: Nicotine 14 MG/24 Hr Patch TRDERM SCH (09:02)
--- NOTE | 2017-08-26 09:12 | PCM.SURGPN ---
- General Info Date of Service: 08/26/17 Date of Surgery/Procedure: 08/24/17 POD#: 2 Post-Op Diagnosis: perforated appendicitis Functional Status: Reports: Pain Controlled, Tolerating Diet - Review of Systems General: Reports: No Symptoms HEENT: Reports: No Symptoms Pulmonary: Reports: Cough, Wheezing Cardiovascular: Reports: No Symptoms Gastrointestinal: Reports: Other (bloated) - Patient Data Vitals - Most Recent: Last Vital Signs Temp 36.7 C 08/26/17 08:00 Pulse 112 H 08/26/17 08:00 Resp 20 08/26/17 08:00 BP 156/95 H 08/26/17 08:55 Pulse Ox 95 08/26/17 08:00 Weight - Most Recent: 119.431 kg I&O - Last 24 Hours: Intake & Output 08/25/17 08/26/17 08/26/17 22:59 06:59 14:59 Intake Total 1190 1000 Output Total 1720 1740 Balance -530 -740 Lab Results Last 24 Hrs: Laboratory Results - last 24 hr 08/26/17 Range/Units 05:44 WBC 12.17 H (4.0-11.0) K/uL RBC 5.29 (4.50-5.90) M/uL Hgb 16.0 (13.0-17.0) g/dL Hct 48.7 (38.0-50.0) % MCV 92.1 (80.0-98.0) fL MCH 30.2 (27.0-32.0) pg MCHC 32.9 (31.0-37.0) g/dL RDW Std Deviation 47.9 (28.0-62.0) fl RDW Coeff of Valeria 14 (11.0-15.0) % Plt Count 190 (150-400) K/uL MPV 10.60 (7.40-12.00) fL Neut % (Auto) 84.4 H (48.0-80.0) % Lymph % (Auto) 7.6 L (16.0-40.0) % [place] % (Auto) 6.7 (0.0-15.0) % Eos % (Auto) 1.2 (0.0-7.0) % Baso % (Auto) 0.1 (0.0-1.5) % Neut # (Auto) 10.3 H (1.4-5.7) K/uL Lymph # (Auto) 0.9 (0.6-2.4) K/uL [place] # (Auto) 0.8 (0.0-0.8) K/uL Eos # (Auto) 0.1 (0.0-0.7) K/uL Baso # (Auto) 0.0 (0.0-0.1) K/uL Nucleated RBC % 0.0 /100WBC Nucleated RBCs # 0 K/uL Med Orders - Current: Current Medications Albuterol/Ipratropium (Duoneb 3.0-0.5 Mg/3 Ml) 3 ml NEB Q4HRRT PRN PRN Reason: Shortness of Breath Amlodipine Besylate (Norvasc) 5 mg PO DAILY [facility] Last Admin: 08/26/17 08:55 Dose: 5 mg Benzocaine/Menthol (Cepacol Sore Throat) 1 lozenge MUCMEM Q2HR PRN PRN Reason: Cough Last Admin: 08/26/17 02:49 Dose: 1 lozenge Calcium Carbonate/Glycine (Tums) 500 mg PO Q2HR PRN PRN Reason: Indigestion Last Admin: 08/25/17 15:26 Dose: 500 mg Cyclobenzaprine HCl (Flexeril) 10 mg PO TID PRN PRN Reason: Abdominal Pain Last Admin: 08/25/17 20:40 Dose: 10 mg Enoxaparin Sodium (Lovenox) 40 mg SUBCUT Q24H [facility] Last Admin: 08/26/17 08:55 Dose: 40 mg Hydralazine HCl (Apresoline) 10 mg IVPUSH Q1H PRN PRN Reason: Hypertension Hydrochlorothiazide (Hydrochlorothiazide) 25 mg PO DAILY [facility] Last Admin: 08/26/17 08:55 Dose: 25 mg Hydromorphone HCl (Dilaudid) 0.5 mg IVPUSH Q1H PRN PRN Reason: Pain Last Admin: 08/26/17 06:58 Dose: 0.5 mg Piperacillin Sod/Tazobactam (Sod 3.375 gm/ Sodium Chloride) 50 mls @ 100 mls/ hr IV Q8H [facility] Last Admin: 08/26/17 01:04 Dose: 100 mls/hr Sodium Chloride (Normal Saline) 500 mls @ 999 mls/hr IV .BOLUS [facility] Last Admin: 08/24/17 21:06 Dose: 999 mls/hr Lactated Ringer's (Ringers, Lactated) 1,000 mls @ 1,000 mls/hr IV .BOLUS ONE Stop: 08/26/17 09:21 Last Admin: 08/26/17 08:56 Dose: 1,000 mls/hr Meloxicam (Mobic) 7.5 mg PO DAILY [facility] Last Admin: 08/26/17 08:55 Dose: 7.5 mg Montelukast Sodium (Singulair) 10 mg PO BEDTIME [facility] Last Admin: 08/25/17 20:40 Dose: 10 mg Nicotine (Habitrol) 14 mg TRDERM DAILY [facility] Last Admin: 08/26/17 09:02 Dose: 14 mg Oxycodone/Acetaminophen (Percocet 325-5 Mg) 2 tab PO Q4H PRN PRN Reason: Abdominal Pain Last Admin: 08/26/17 09:06 Dose: 2 tab Senna/Docusate Sodium (Senokot-S) 1 each PO ASDIRECTED [facility] Discontinued Medications Albuterol (Proventil Hfa) Confirm Administered Dose 6.7 gm INH .STK-MED ONE Stop: 08/24/17 15:58 Albuterol/Ipratropium (Duoneb 3.0-0.5 Mg/3 Ml) 3 ml NEB Q6HRRT PRN PRN Reason: Shortness of Breath Last Admin: 08/25/17 07:49 Dose: 3 ml Albuterol/Ipratropium (Duoneb 3.0-0.5 Mg/3 Ml) 3 ml NEB Q8HR [facility] Last Admin: 08/25/17 13:42 Dose: 3 ml Albuterol/Ipratropium (Duoneb 3.0-0.5 Mg/3 Ml) 3 ml NEB Q6HR [facility] Last Admin: 08/25/17 20:31 Dose: 3 ml Albuterol/Ipratropium (Duoneb 3.0-0.5 Mg/3 Ml) Confirm Administered Dose 3 ml .ROUTE .STK-MED ONE Stop: 08/25/17 20:29 Last Admin: 08/26/17 00:06 Dose: Not Given Albuterol/Ipratropium (Duoneb 3.0-0.5 Mg/3 Ml) 3 ml NEB Q6HR [facility] Last Admin: 08/26/17 00:52 Dose: 3 ml Albuterol/Ipratropium (Duoneb 3.0-0.5 Mg/3 Ml) 3 ml NEB Q4HR [facility] Last Admin: 08/26/17 04:05 Dose: 3 ml Albuterol/Ipratropium (Duoneb 3.0-0.5 Mg/3 Ml) 3 ml NEB Q4HRRT [facility] Benzocaine/Menthol (Cepacol Sore Throat) 1 lozenge MUCMEM Q4HR PRN PRN Reason: Cough Bupivacaine HCl (Marcaine 0.5%) Confirm Administered Dose 30 ml .ROUTE .STK-MED ONE Stop: 08/24/17 14:58 Diphenhydramine HCl (Benadryl) Confirm Administered Dose 50 mg .ROUTE .STK-MED ONE Stop: 08/24/17 15:14 Ephedrine Sulfate (Ephedrine Sulfate) Confirm Administered Dose 50 mg .ROUTE .STK-MED ONE Stop: 08/24/17 17:33 Fentanyl (Sublimaze) Confirm Administered Dose 250 mcg .ROUTE .STK-MED ONE Stop: 08/24/17 15:13 Fentanyl (Sublimaze) 50 mcg IVPUSH Q5M PRN PRN Reason: Pain (severe 7-10) Stop: 08/24/17 19:00 Last Admin: 08/24/17 18:24 Dose: 50 mcg Glycopyrrolate () Confirm Administered Dose 1 mg .ROUTE .STK-MED ONE Stop: 08/24/17 15:14 Lactated Ringer's (Ringers, Lactated) 1,000 mls @ 125 mls/hr IV ASDIRECTED [facility] Last Admin: 08/25/17 03:35 Dose: 125 mls/hr Lidocaine (Xylocaine-Mpf 2%) Confirm Administered Dose 5 ml .ROUTE .STK-MED ONE Stop: 08/24/17 15:15 Neostigmine Methylsulfate (Neostigmine) Confirm Administered Dose 5 mg .ROUTE .STK-MED ONE Stop: 08/24/17 15:14 Ondansetron HCl (Zofran) Confirm Administered Dose 4 mg .ROUTE .STK-MED ONE Stop: 08/24/17 15:14 Propofol (Diprivan 20 Ml) Confirm Administered Dose 200 mg .ROUTE .STK-MED ONE Stop: 08/24/17 15:13 Rocuronium [place] (Zemuron) Confirm Administered Dose 100 mg .ROUTE .STK-MED ONE Stop: 08/24/17 15:14 Succinylcholine Chloride (Succinylcholine In Ns Pf) Confirm Administered Dose 200 mg .ROUTE .STK-MED ONE Stop: 08/24/17 15:14 - Exam Wound/Incisions: Healing Well General: Alert, Oriented HEENT: Pupils Equal, Pupils Reactive Lungs: Normal Respiratory Effort, Crackles (in right base), Wheezing (expiratory ) Cardiovascular: Regular Rate, Regular Rhythm GI/Abdominal Exam: Soft, Non-Tender, Distended (mild). No: Rigid, Rebound, Tender Extremities: Normal Inspection Skin: Warm, Dry, Intact Neurological: No New Focal Deficit - Problem List & Annotations (1) Appendicitis SNOMED Code(s): 13099134 Code(s): K37 - UNSPECIFIED APPENDICITIS Status: Acute Current Visit: Yes (2) Pneumonia SNOMED Code(s): 460310000 Code(s): J18.9 - PNEUMONIA, UNSPECIFIED ORGANISM Status: Acute Current Visit: Yes Qualifiers: Pneumonia type: due to unspecified organism Laterality: right Lung location: lower lobe of lung Qualified Code(s): J18.1 - Lobar pneumonia, unspecified organism - Problem List Review Problem List Initiated/Reviewed/Updated: Yes - My Orders Last 24 Hours: Active Orders 24 hr Category Date Time Status EKG 12 Lead [EKG Documentation Completion] [RC] ROUTINE Care 08/26/17 01:47 Active Regular Diet [DIET] Diet 08/25/17 Lunch Active CXR [Chest 1V Frontal] [CR] Routine Exams 08/26/17 07:30 Taken Albuterol/Ipratropium [DuoNeb 3.0-0.5 MG/3 ML] Med 08/26/17 08:42 Active 3 ml NEB Q4HRRT PRN Benzocaine/Cetylpyrd/Menthol [Cepacol Sore Throat] Med 08/26/17 01:50 Active 1 lozenge MUCMEM Q2HR PRN Calcium Carbonate [Tums] Med 08/25/17 09:48 Active 500 mg PO Q2HR PRN Cyclobenzaprine [Flexeril] Med 08/25/17 09:43 Active 10 mg PO TID PRN Docusate Sodium/Sennosides [Senokot-S] Med 08/26/17 09:15 Ordered 1 each PO ASDIRECTED Enoxaparin [Lovenox] Med 08/26/17 08:45 Active 40 mg SUBCUT Q24H Hydrochlorothiazide Med 08/25/17 09:00 Active 25 mg PO DAILY Lactated Ringers [Ringers, Lactated] 1,000 ml Med 08/26/17 08:22 Active IV .BOLUS Meloxicam [Mobic] Med 08/25/17 09:45 Active 7.5 mg PO DAILY amLODIPine [Norvasc] Med 08/25/17 09:00 Active 5 mg PO DAILY Medication Orders Albuterol/Ipratropium (Duoneb 3.0-0.5 Mg/3 Ml) 3 ml NEB Q4HRRT PRN PRN Reason: Shortness of Breath Amlodipine Besylate (Norvasc) 5 mg PO DAILY [facility] Last Admin: 08/26/17 08:55 Dose: 5 mg Admin: 08/25/17 08:01 Dose: 5 mg Benzocaine/Menthol (Cepacol Sore Throat) 1 lozenge MUCMEM Q2HR PRN PRN Reason: Cough Last Admin: 08/26/17 02:49 Dose: 1 lozenge Calcium Carbonate/Glycine (Tums) 500 mg PO Q2HR PRN PRN Reason: Indigestion Last Admin: 08/25/17 15:26 Dose: 500 mg Cyclobenzaprine HCl (Flexeril) 10 mg PO TID PRN PRN Reason: Abdominal Pain Last Admin: 08/25/17 20:40 Dose: 10 mg Admin: 08/25/17 09:58 Dose: 10 mg Enoxaparin Sodium (Lovenox) 40 mg SUBCUT Q24H [facility] Last Admin: 08/26/17 08:55 Dose: 40 mg Hydralazine HCl (Apresoline) 10 mg IVPUSH Q1H PRN PRN Reason: Hypertension Hydrochlorothiazide (Hydrochlorothiazide) 25 mg PO DAILY [facility] Last Admin: 08/26/17 08:55 Dose: 25 mg Admin: 08/25/17 08:01 Dose: 25 mg Hydromorphone HCl (Dilaudid) 0.5 mg IVPUSH Q1H PRN PRN Reason: Pain Last Admin: 08/26/17 06:58 Dose: 0.5 mg Admin: 08/26/17 00:53 Dose: 0.5 mg Admin: 08/25/17 17:45 Dose: 0.5 mg Admin: 08/25/17 13:44 Dose: 0.5 mg Admin: 08/25/17 08:50 Dose: 0.5 mg Admin: 08/25/17 06:52 Dose: 0.5 mg Admin: 08/25/17 05:12 Dose: 0.5 mg Admin: 08/24/17 21:58 Dose: 0.5 mg Admin: 08/24/17 18:56 Dose: 0.5 mg Admin: 08/24/17 15:00 Dose: 0.5 mg Piperacillin Sod/Tazobactam (Sod 3.375 gm/ Sodium Chloride) 50 mls @ 100 mls/ hr IV Q8H [facility] Last Admin: 08/26/17 01:04 Dose: 100 mls/hr Infusion: 08/25/17 18:16 Dose: 100 mls/hr Admin: 08/25/17 17:46 Dose: 100 mls/hr Infusion: 08/25/17 10:29 Dose: 100 mls/hr Admin: 08/25/17 09:59 Dose: 100 mls/hr Infusion: 08/25/17 01:57 Dose: 100 mls/hr Admin: 08/25/17 01:27 Dose: 100 mls/hr Infusion: 08/24/17 19:26 Dose: 100 mls/hr Admin: 08/24/17 18:56 Dose: 100 mls/hr Sodium Chloride (Normal Saline) 500 mls @ 999 mls/hr IV .BOLUS [facility] Last Admin: 08/24/17 21:06 Dose: 999 mls/hr Lactated Ringer's (Ringers, Lactated) 1,000 mls @ 1,000 mls/hr IV .BOLUS ONE Stop: 08/26/17 09:21 Last Admin: 08/26/17 08:56 Dose: 1,000 mls/hr Meloxicam (Mobic) 7.5 mg PO DAILY [facility] Last Admin: 08/26/17 08:55 Dose: 7.5 mg Admin: 08/25/17 09:58 Dose: 7.5 mg Montelukast Sodium (Singulair) 10 mg PO BEDTIME [facility] Last Admin: 08/25/17 20:40 Dose: 10 mg Admin: 08/24/17 20:13 Dose: 10 mg Nicotine (Habitrol) 14 mg TRDERM DAILY [facility] Last Admin: 08/26/17 09:02 Dose: 14 mg Admin: 08/25/17 08:00 Dose: 14 mg Admin: 08/24/17 23:24 Dose: 14 mg Oxycodone/Acetaminophen (Percocet 325-5 Mg) 2 tab PO Q4H PRN PRN Reason: Abdominal Pain Last Admin: 08/26/17 09:06 Dose: 2 tab Admin: 08/26/17 02:52 Dose: 2 tab Admin: 08/25/17 20:43 Dose: 2 tab Admin: 08/25/17 15:22 Dose: 2 tab Admin: 08/25/17 10:44 Dose: 2 tab Admin: 08/25/17 06:48 Dose: 2 tab Admin: 08/25/17 01:26 Dose: 2 tab Admin: 08/24/17 20:11 Dose: 2 tab Senna/Docusate Sodium (Senokot-S) 1 each PO ASDIRECTED [facility] - Plan Plan (Free Text/Narrative):: -Neuro: Percocet and flexeril po. IV dilaudid prn severe pain. Pain much better controlled today. -Cards: Tachycardia overnight. EKG shows sinus tachycardia. Heart sounds are regular. Will give fluid bolus since patient had large amount of UOP yesterday and still having fevers. Will continue to monitor. -Pulmonary: Patient would like duo-nebs prn. Has SOB baseline and COPD. Had cough before presenting to hospital. On 3L NC. CXR this am shows infiltrate in RLL. Patient has a non-productive cough. Will treat for possible pneumonia. Continue IS use and OOB activity. -GI: Passing flatus and tolerating regular diet. Will start dulcolax. -Renal: Patient is net negative 1.2L. This may be why he is tachycardic. Will give 1L LR and monitor HR. -ID: Ruptured appendicitis and now CXR evidence of RLL pneumonia. WBC continues to improve. Will continue zosyn until it is WNL. Continues to have low grade temps. -Px: Lovenox, SCDs
[2017-08-26] MEDS ORDERED: Docusate Sodium/Sennosides Tab PO SCH (09:15)
[2017-08-26] MEDS: Albuterol/Ipratropium 3.0-0.5 MG/3 ML Neb Soln NEB PRN ×2 (12:15→22:09)
--- NOTE | 2017-08-26 16:23 | CR ---
EXAM DATE: 08/24/17 PATIENT'S AGE: 52 Patient: FORD LIN Facility: [place], [place] Site . Site : [id number] Study: XRay Chest [id number]/20/2017 8:11:45 AM Ordering Physician: Roosevelt Mike Final Report: INDICATION: Fever TECHNIQUE: Chest 1 view COMPARISON: None FINDINGS: CARDIOVASCULATURE AND MEDIASTINUM: Heart size and vasculature are normal in caliber and appearance. Mediastinum is within normal limits. LUNGS AND PLEURAL SPACE: There is a somewhat linear opacity in the right lung base. Left-side pleural effusion is present. The remainder of the lungs and pleural spaces are clear. BONES AND SOFT TISSUES: No significant findings. IMPRESSION: Possible pneumonia or dense atelectasis in the right lower lobe. Left-sided pleural effusion is of uncertain etiology. Remainder of the exam is unremarkable. Dictated by Keith Santos MD @ 08/26/2017 8:18:03 AM Dictated by: Keith Santos MD @ 08/26/2017 08:18:05 (Electronic Signature) Report Signed by Proxy. [facility]
[2017-08-26] MEDS: Cyclobenzaprine 10 MG Tab PO PRN (17:38)
[2017-08-26] MEDS: Montelukast 10 MG Tab PO SCH (20:26)
[2017-08-27] MEDS: Piperacillin/Tazobactam 3.375 GM in Sodium Chloride 0.9% 50 ML IV SCH (01:24)
[2017-08-27] MEDS: Acetaminophen/oxyCODONE 325-5 MG Tab PO PRN ×3 (02:04→12:20)
[2017-08-27] MEDS: Albuterol/Ipratropium 3.0-0.5 MG/3 ML Neb Soln NEB PRN ×2 (06:50→12:16)
[2017-08-27] MEDS ORDERED: Levofloxacin 250 MG Tab PO SCH (07:45)
[2017-08-27] MEDS ORDERED: Magnesium Citrate Solution 296 ML Bottle PO ONE (08:03)
[2017-08-27] MEDS: metroNIDAZOLE 250 MG Tab PO SCH ×2 (08:08→13:57)
[2017-08-27] MEDS: Hydrochlorothiazide 25 MG Tab PO SCH (08:17)
[2017-08-27] MEDS: amLODIPine 5 MG Tab PO SCH (08:18)
[2017-08-27] MEDS: Enoxaparin 40 MG/0.4 ML Syringe SUBCUT SCH (08:18)
[2017-08-27] MEDS: Nicotine 14 MG/24 Hr Patch TRDERM SCH (08:19)
[2017-08-27] MEDS: Meloxicam 7.5 MG Tab PO SCH (08:29)
--- NOTE | 2017-08-27 17:35 | PCM.DCSUM1 ---
Discharge Summary - Hospital Course Free Text/Narrative:: Patient is a 52-year-old male who presented with perforated appendicitis. The appendix was able to removed laparoscopically. Postoperatively the patient developed fevers and tachycardia. He was given several fluid boluses which improved his tachycardia. He was kept on IV Zosyn. His oxygen saturations were slightly diminished and chest x-ray was obtained that showed atelectasis versus infiltration in the right lower lobe. This may have been from an acute on chronic bronchitis exacerbation or a pneumonia. The patient presented to the hospital with cough and increased shortness of breath. Ultimately the IV Zosyn with treating pneumonia and the oral antibiotics I gave him we'll treat any acute on chronic bronchitis exacerbation. On postop day 3 the patient was given magnesium citrate and had 2 large bowel movements. With this the patient felt more comfortable and was able to breathe easier. He was stable over the last 24 hours and switch to Levaquin and Flagyl. After observation for half a day he had no return of fevers. His vital signs remained stable and he was weaned off of oxygen. He was discharged home. - Discharge Data Discharge Date: 08/27/17 Discharge Disposition: Home, Self-Care 01 Condition: Good - Discharge Diagnosis/Problem(s) (1) Appendicitis SNOMED Code(s): 92269806 ICD Code: K37 - UNSPECIFIED APPENDICITIS Status: Acute (2) Pneumonia SNOMED Code(s): 255796920 ICD Code: J18.9 - PNEUMONIA, UNSPECIFIED ORGANISM Status: Acute Qualifiers: Pneumonia type: due to unspecified organism Laterality: right Lung location: lower lobe of lung Qualified Code(s): J18.1 - Lobar pneumonia, unspecified organism - Patient Summary/Data Operative Procedure(s) Performed: Laparoscopic appendectomy - Patient Instructions Diet: Regular Diet as Tolerated, Drink 8-10+ Glasses/Day Activity: No Lifting Over 20 Pounds, Rest and Relax Today Driving: Do Not Drive Showering/Bathing: May Shower, No Tub Bathing/Swimming Wound/Incision Care: Keep Operative Site/Wound Site Clean and Dry Notify Provider of: Fever, Increased Pain, Swelling and Redness, Drainage, Nausea and/or Vomiting - Discharge Plan Prescriptions/Med Rec: Acetaminophen/oxyCODONE [Percocet 325-5 MG] 1 - 2 tab PO Q4H #40 tablet Docusate Sodium/Sennosides [Senna Plus] 1 tab PO DAILY PRN #15 tablet PRN Reason: Constipation Levofloxacin [Levaquin] 750 mg PO Q24H #4 tablet metroNIDAZOLE 250 mg PO Q6H #16 tablet Home Medications: Home Meds ALPRAZolam [Alprazolam] 1 mg PO ASDIRECTED PRN 08/24/17 [History] Albuterol Sulfate [Proair Hfa] INH ASDIRECTED PRN 08/24/17 [History] Albuterol/Ipratropium [DuoNeb 3.0-0.5 MG/3 ML] 2.5 ml INH ASDIRECTED PRN [History] Cyclobenzaprine [Flexeril] 10 mg PO ASDIRECTED PRN 08/24/17 [History] Hydrochlorothiazide 25 mg PO DAILY 08/24/17 [History] Ipratropium [Atrovent] 0.5 ml INH ASDIRECTED PRN 08/24/17 [History] Levalbuterol HCl [Xopenex] 1.25 mg INH ASDIRECTED PRN 08/24/17 [History] Meloxicam 15 mg PO DAILY 08/24/17 [History] Montelukast [Singulair] 10 mg PO DAILY 08/24/17 [History] amLODIPine [Norvasc] 10 mg PO DAILY 08/24/17 [History] Acetaminophen/oxyCODONE [Percocet 325-5 MG] 1 - 2 tab PO Q4H #40 tablet [Rx] Docusate Sodium/Sennosides [Senna Plus] 1 tab PO DAILY PRN #15 tablet 08/27/17 [ Rx] Levofloxacin [Levaquin] 750 mg PO Q24H #4 tablet 08/27/17 [Rx] metroNIDAZOLE 250 mg PO Q6H #16 tablet 08/27/17 [Rx] Patient Handouts: Acetaminophen; Oxycodone tablets, Laparoscopic Appendectomy, Adult, Care After, [id number], Levofloxacin tablets, Docusate capsules, Metronidazole tablets or capsules Referrals: Cee Albert MD [Physician] - 09/06/17 1:30 pm - General Info Date of Service: 08/27/17 Functional Status: Reports: Pain Controlled, Tolerating Diet, Ambulating, Urinating, Incentive Spirometry - Review of Systems General: Reports: No Symptoms Pulmonary: Reports: No Symptoms Cardiovascular: Reports: No Symptoms Gastrointestinal: Reports: No Symptoms - Patient Data Vitals - Most Recent: Last Vital Signs Temp 36.3 C 08/27/17 12:00 Pulse 109 H 08/27/17 12:00 Resp 22 H 08/27/17 12:00 BP 136/78 08/27/17 12:00 Pulse Ox 91 L 08/27/17 12:00 Weight - Most Recent: 119.431 kg I&O - Last 24 hours: Intake & Output 08/27/17 08/27/17 08/27/17 06:59 14:59 22:59 Intake Total 1650 Output Total 1805 Balance -155 Lab Results - Last 24 hrs: Laboratory Results - last 24 hr 08/27/17 Range/Units 04:59 WBC 9.16 (4.0-11.0) K/uL RBC 5.33 (4.50-5.90) M/uL Hgb 16.3 (13.0-17.0) g/dL Hct 48.9 (38.0-50.0) % MCV 91.7 (80.0-98.0) fL MCH 30.6 (27.0-32.0) pg MCHC 33.3 (31.0-37.0) g/dL RDW Std Deviation 46.6 (28.0-62.0) fl RDW Coeff of Valeria 14 (11.0-15.0) % Plt Count 205 (150-400) K/uL MPV 10.50 (7.40-12.00) fL Neut % (Auto) 82.5 H (48.0-80.0) % Lymph % (Auto) 7.0 L (16.0-40.0) % [place] % (Auto) 6.6 (0.0-15.0) % Eos % (Auto) 3.8 (0.0-7.0) % Baso % (Auto) 0.1 (0.0-1.5) % Neut # (Auto) 7.6 H (1.4-5.7) K/uL Lymph # (Auto) 0.6 (0.6-2.4) K/uL [place] # (Auto) 0.6 (0.0-0.8) K/uL Eos # (Auto) 0.4 (0.0-0.7) K/uL Baso # (Auto) 0.0 (0.0-0.1) K/uL Nucleated RBC % 0.0 /100WBC Nucleated RBCs # 0 K/uL Med Orders - Current: Current Medications Discontinued Medications Albuterol (Proventil Hfa) Confirm Administered Dose 6.7 gm INH .STK-MED ONE Stop: 08/24/17 15:58 Albuterol/Ipratropium (Duoneb 3.0-0.5 Mg/3 Ml) 3 ml NEB Q6HRRT PRN PRN Reason: Shortness of Breath Last Admin: 08/25/17 07:49 Dose: 3 ml Albuterol/Ipratropium (Duoneb 3.0-0.5 Mg/3 Ml) 3 ml NEB Q8HR DANNIELLE Last Admin: 08/25/17 13:42 Dose: 3 ml Albuterol/Ipratropium (Duoneb 3.0-0.5 Mg/3 Ml) 3 ml NEB Q6HR DANNIELLE Last Admin: 08/25/17 20:31 Dose: 3 ml Albuterol/Ipratropium (Duoneb 3.0-0.5 Mg/3 Ml) Confirm Administered Dose 3 ml .ROUTE .STK-MED ONE Stop: 08/25/17 20:29 Last Admin: 08/26/17 00:06 Dose: Not Given Albuterol/Ipratropium (Duoneb 3.0-0.5 Mg/3 Ml) 3 ml NEB Q6HR DANNIELLE Last Admin: 08/26/17 00:52 Dose: 3 ml Albuterol/Ipratropium (Duoneb 3.0-0.5 Mg/3 Ml) 3 ml NEB Q4HR DANNIELLE Last Admin: 08/26/17 04:05 Dose: 3 ml Albuterol/Ipratropium (Duoneb 3.0-0.5 Mg/3 Ml) 3 ml NEB Q4HRRT DANNIELLE Albuterol/Ipratropium (Duoneb 3.0-0.5 Mg/3 Ml) 3 ml NEB Q4HRRT PRN PRN Reason: Shortness of Breath Last Admin: 08/27/17 12:16 Dose: 3 ml Amlodipine Besylate (Norvasc) 5 mg PO DAILY DANNIELLE Last Admin: 08/27/17 08:18 Dose: 5 mg Benzocaine/Menthol (Cepacol Sore Throat) 1 lozenge MUCMEM Q4HR PRN PRN Reason: Cough Benzocaine/Menthol (Cepacol Sore Throat) 1 lozenge MUCMEM Q2HR PRN PRN Reason: Cough Last Admin: 08/26/17 02:49 Dose: 1 lozenge Bupivacaine HCl (Marcaine 0.5%) Confirm Administered Dose 30 ml .ROUTE .STK-MED ONE Stop: 08/24/17 14:58 Calcium Carbonate/Glycine (Tums) 500 mg PO Q2HR PRN PRN Reason: Indigestion Last Admin: 08/25/17 15:26 Dose: 500 mg Cyclobenzaprine HCl (Flexeril) 10 mg PO TID PRN PRN Reason: Abdominal Pain Last Admin: 08/26/17 17:38 Dose: 10 mg Diphenhydramine HCl (Benadryl) Confirm Administered Dose 50 mg .ROUTE .STK-MED ONE Stop: 08/24/17 15:14 Enoxaparin Sodium (Lovenox) 40 mg SUBCUT Q24H [facility] Last Admin: 08/27/17 08:18 Dose: 40 mg Ephedrine Sulfate (Ephedrine Sulfate) Confirm Administered Dose 50 mg .ROUTE .STK-MED ONE Stop: 08/24/17 17:33 Fentanyl (Sublimaze) Confirm Administered Dose 250 mcg .ROUTE .STK-MED ONE Stop: 08/24/17 15:13 Fentanyl (Sublimaze) 50 mcg IVPUSH Q5M PRN PRN Reason: Pain (severe 7-10) Stop: 08/24/17 19:00 Last Admin: 08/24/17 18:24 Dose: 50 mcg Glycopyrrolate () Confirm Administered Dose 1 mg .ROUTE .STK-MED ONE Stop: 08/24/17 15:14 Hydralazine HCl (Apresoline) 10 mg IVPUSH Q1H PRN PRN Reason: Hypertension Hydrochlorothiazide (Hydrochlorothiazide) 25 mg PO DAILY [facility] Last Admin: 08/27/17 08:17 Dose: 25 mg Hydromorphone HCl (Dilaudid) 0.5 mg IVPUSH Q1H PRN PRN Reason: Pain Last Admin: 08/26/17 06:58 Dose: 0.5 mg Lactated Ringer's (Ringers, Lactated) 1,000 mls @ 125 mls/hr IV ASDIRECTED [facility] Last Admin: 08/25/17 03:35 Dose: 125 mls/hr Piperacillin Sod/Tazobactam (Sod 3.375 gm/ Sodium Chloride) 50 mls @ 100 mls/ hr IV Q8H [facility] Last Admin: 08/27/17 01:24 Dose: 100 mls/hr Sodium Chloride (Normal Saline) 500 mls @ 999 mls/hr IV .BOLUS [facility] Last Admin: 08/24/17 21:06 Dose: 999 mls/hr Lactated Ringer's (Ringers, Lactated) 1,000 mls @ 1,000 mls/hr IV .BOLUS ONE Stop: 08/26/17 09:21 Last Admin: 08/26/17 08:56 Dose: 1,000 mls/hr Lactated Ringer's (Ringers, Lactated) 1,000 mls @ 1,000 mls/hr IV .BOLUS ONE Stop: 08/26/17 17:23 Last Admin: 08/26/17 17:28 Dose: 1,000 mls/hr Levofloxacin (Levaquin) 750 mg PO Q24H [facility] Last Admin: 08/27/17 08:09 Dose: 750 mg Lidocaine (Xylocaine-Mpf 2%) Confirm Administered Dose 5 ml .ROUTE .STK-MED ONE Stop: 08/24/17 15:15 Magnesium Citrate (Citrate Of Magnesia) 296 ml PO ONETIME ONE Stop: 08/27/17 08:04 Last Admin: 08/27/17 08:17 Dose: 296 ml Meloxicam (Mobic) 7.5 mg PO DAILY [facility] Last Admin: 08/27/17 08:29 Dose: 7.5 mg Metronidazole (Metronidazole) 250 mg PO Q6H [facility] Last Admin: 08/27/17 13:57 Dose: 250 mg Montelukast Sodium (Singulair) 10 mg PO BEDTIME [facility] Last Admin: 08/26/17 20:26 Dose: 10 mg Neostigmine Methylsulfate (Neostigmine) Confirm Administered Dose 5 mg .ROUTE .STK-MED ONE Stop: 08/24/17 15:14 Nicotine (Habitrol) 14 mg TRDERM DAILY [facility] Last Admin: 08/27/17 08:19 Dose: 14 mg Ondansetron HCl (Zofran) Confirm Administered Dose 4 mg .ROUTE .STK-MED ONE Stop: 08/24/17 15:14 Oxycodone/Acetaminophen (Percocet 325-5 Mg) 2 tab PO Q4H PRN PRN Reason: Abdominal Pain Last Admin: 08/27/17 12:20 Dose: 2 tab Propofol (Diprivan 20 Ml) Confirm Administered Dose 200 mg .ROUTE .STK-MED ONE Stop: 08/24/17 15:13 Rocuronium [place] (Zemuron) Confirm Administered Dose 100 mg .ROUTE .STK-MED ONE Stop: 08/24/17 15:14 Senna/Docusate Sodium (Senokot-S) 1 each PO DAILY [facility] Last Admin: 08/26/17 22:14 Dose: Not Given Senna/Docusate Sodium (Senna Plus) 1 tab PO DAILY [facility] Last Admin: 08/27/17 08:18 Dose: 1 tab Succinylcholine Chloride (Succinylcholine In Ns Pf) Confirm Administered Dose 200 mg .ROUTE .STK-MED ONE Stop: 08/24/17 15:14 - Exam General: Reports: Alert, Oriented Lungs: Reports: Normal Respiratory Effort Cardiovascular: Reports: Regular Rate GI/Abdominal Exam: Soft, Non-Tender, No Distention Back Exam: Reports: Normal Inspection Extremities: Normal Inspection *Q Meaningful Use (DIS) - VTE *Q VTE Criteria *Q: - Stroke *Q Stroke Criteria *Q: - AMI *Q AMI Criteria *Q:
== END 2017-08-27 14:00 | disposition home or self-care (01) ==
LOC: MW.SDS 14:11 → MW.MS 14:35
PROVIDERS: ADMIT Surgery; ATTEND Surgery
DX: K57.32 Diverticulitis of large intestine without perforation or abscess without bleeding (principal); J18.1 Lobar pneumonia, unspecified organism; J44.9 Chronic obstructive pulmonary disease, unspecified; Z79.899 Other long term (current) drug therapy; Z98.890 Other specified postprocedural states; F17.210 Nicotine dependence, cigarettes, uncomplicated; Z91.013 Allergy to seafood; Z91.018 Allergy to other foods
CPT/HCPCS: 36415; 44970; 71010; 80048; 85025; 93005; 94640; 96372; A9270; G0378; G0379; J1170; J1200; J1650; J2405; J2543; J3010; J7040; J7050; J7120; 00840; 88304; J2704